=== PATIENT | male | born 1960 | race Hispanic/Latino ===

== ENCOUNTER 2017-07-09 06:52 | Day surgery (SDC) | payer MEDICAID ==
[~2017-07-09] VITALS: Ht 152.4 cm; Wt 66.0 kg
[~2017-07-09 06:52] MED LIST: SODIUM CHLORIDE 0.9% 1000ML 1,000 ML IV ONE
[2017-07-09 07:00] VITALS: BP 206/103
[2017-07-09] MEDS ORDERED: LOSA100T29 PO (07:19)
[2017-07-09] MEDS ORDERED: METFORMINA PO (07:19)
== END 2017-07-09 08:39 | disposition home or self-care (01) ==
LOC: DAH 06:52 → SUH 06:52
PROVIDERS: ATTEND Internal Medicine
DX: D12.2 Benign neoplasm of ascending colon (principal); K63.5 Polyp of colon; K62.1 Rectal polyp; I10 Essential (primary) hypertension; E11.9 Type 2 diabetes mellitus without complications; Z98.890 Other specified postprocedural states; Z79.899 Other long term (current) drug therapy; Z79.84 Long term (current) use of oral hypoglycemic drugs; K57.30 Diverticulosis of large intestine without perforation or abscess without bleeding
CPT/HCPCS: 45385; 82948; 88305; J7030